=== PATIENT | male | born 1980 | race American Indian/Alaskan Native ===

== ENCOUNTER 2019-12-09 10:43 | Outpatient (CLI) | payer BC ==
[2019-12-09] MEDS ORDERED: LIDOCAINE (4%) 40 MG/ML TOPICAL SOLN 50 ML BOTTLE TP ONE (11:00)
== END 2019-12-09 10:44 | disposition home or self-care (01) ==
LOC: WOUND 10:43
PROVIDERS: ATTEND Surgery
DX: I87.311 Chronic venous hypertension (idiopathic) with ulcer of right lower extremity (principal); L97.812 Non-pressure chronic ulcer of other part of right lower leg with fat layer exposed; L97.312 Non-pressure chronic ulcer of right ankle with fat layer exposed; Z86.718 Personal history of other venous thrombosis and embolism
CPT/HCPCS: 11044; 11047; G0463; 99204

== ENCOUNTER 2019-12-16 08:47 | Outpatient (CLI) | payer BC ==
[2019-12-16] MEDS ORDERED: LIDOCAINE (4%) 40 MG/ML TOPICAL SOLN 50 ML BOTTLE TP SCH (09:30)
[2019-12-16] MEDS ORDERED: SODIUM HYPOCHLORITE, DAKIN'S FULL STRENGTH (0.5%) 473 ML TOPICAL SOLN TP ONE (10:02)
[2019-12-16] MEDS ORDERED: SODIUM CHLORIDE 0.9% IRR 500 ML BOTTLE IR ONE (11:30)
== END 2019-12-16 08:48 | disposition home or self-care (01) ==
LOC: WOUND 08:47
PROVIDERS: ATTEND Surgery
DX: I87.311 Chronic venous hypertension (idiopathic) with ulcer of right lower extremity (principal); L97.812 Non-pressure chronic ulcer of other part of right lower leg with fat layer exposed; L97.312 Non-pressure chronic ulcer of right ankle with fat layer exposed; Z86.718 Personal history of other venous thrombosis and embolism

== ENCOUNTER 2019-12-23 08:23 | Outpatient (CLI) | payer BC ==
[2019-12-23] MEDS ORDERED: LIDOCAINE (4%) 40 MG/ML TOPICAL SOLN 50 ML BOTTLE TP ONE (09:00)
== END 2019-12-23 08:24 | disposition home or self-care (01) ==
LOC: WOUND 08:23
PROVIDERS: ATTEND Surgery
DX: I87.311 Chronic venous hypertension (idiopathic) with ulcer of right lower extremity (principal); L97.812 Non-pressure chronic ulcer of other part of right lower leg with fat layer exposed; L97.312 Non-pressure chronic ulcer of right ankle with fat layer exposed; Z86.718 Personal history of other venous thrombosis and embolism
CPT/HCPCS: 29581

== ENCOUNTER 2019-12-30 08:00 | Outpatient (CLI) | payer BC ==
[2019-12-30] MEDS ORDERED: LIDOCAINE (4%) 40 MG/ML TOPICAL SOLN 50 ML BOTTLE TP ONE (08:10)
== END 2019-12-30 08:01 | disposition home or self-care (01) ==
LOC: WOUND 08:00
PROVIDERS: ATTEND Surgery
DX: I87.311 Chronic venous hypertension (idiopathic) with ulcer of right lower extremity (principal); L97.812 Non-pressure chronic ulcer of other part of right lower leg with fat layer exposed; L97.312 Non-pressure chronic ulcer of right ankle with fat layer exposed; Z86.718 Personal history of other venous thrombosis and embolism
CPT/HCPCS: 29581

== ENCOUNTER 2020-01-04 12:16 | Outpatient (CLI) | payer BC | END 2020-01-04 12:17 | disposition home or self-care (01) | LOC: WOUND 12:16 | PROVIDERS: ATTEND Surgery | DX: I87.311 Chronic venous hypertension (idiopathic) with ulcer of right lower extremity (principal); L97.812 Non-pressure chronic ulcer of other part of right lower leg with fat layer exposed; L97.312 Non-pressure chronic ulcer of right ankle with fat layer exposed; Z86.718 Personal history of other venous thrombosis and embolism | CPT/HCPCS: 29581 ==

== ENCOUNTER 2020-01-07 08:24 | Outpatient (CLI) | payer BC ==
[2020-01-07] MEDS ORDERED: LIDOCAINE (4%) 40 MG/ML TOPICAL SOLN 50 ML BOTTLE TP ONE (09:00)
== END 2020-01-07 08:25 | disposition home or self-care (01) ==
LOC: WOUND 08:24
PROVIDERS: ATTEND Surgery
DX: I87.311 Chronic venous hypertension (idiopathic) with ulcer of right lower extremity (principal); L97.816 Non-pressure chronic ulcer of other part of right lower leg with bone involvement without evidence of necrosis; Z86.718 Personal history of other venous thrombosis and embolism
CPT/HCPCS: 29581

== ENCOUNTER 2020-01-11 12:48 | Outpatient (CLI) | payer BC | END 2020-01-11 12:49 | disposition home or self-care (01) | LOC: WOUND 12:48 | PROVIDERS: ATTEND Surgery | DX: I87.311 Chronic venous hypertension (idiopathic) with ulcer of right lower extremity (principal); L97.812 Non-pressure chronic ulcer of other part of right lower leg with fat layer exposed; L97.312 Non-pressure chronic ulcer of right ankle with fat layer exposed; Z86.718 Personal history of other venous thrombosis and embolism | CPT/HCPCS: 29581 ==

== ENCOUNTER 2020-01-14 08:24 | Outpatient (CLI) | payer BC ==
[2020-01-14] MEDS ORDERED: LIDOCAINE (4%) 40 MG/ML TOPICAL SOLN 50 ML BOTTLE TP ONE (09:00)
== END 2020-01-14 08:25 | disposition home or self-care (01) ==
LOC: WOUND 08:24
PROVIDERS: ATTEND Surgery
DX: I87.311 Chronic venous hypertension (idiopathic) with ulcer of right lower extremity (principal); L97.312 Non-pressure chronic ulcer of right ankle with fat layer exposed; Z86.718 Personal history of other venous thrombosis and embolism
CPT/HCPCS: 29581

== ENCOUNTER 2020-01-18 15:04 | Outpatient (CLI) | payer BC | END 2020-01-18 15:05 | disposition home or self-care (01) | LOC: WOUND 15:04 | PROVIDERS: ATTEND Surgery | DX: I87.311 Chronic venous hypertension (idiopathic) with ulcer of right lower extremity (principal); L97.811 Non-pressure chronic ulcer of other part of right lower leg limited to breakdown of skin; Z86.718 Personal history of other venous thrombosis and embolism | CPT/HCPCS: 29581 ==